=== PATIENT | male | born 1940 | race Caucasian/White ===

== ENCOUNTER 2025-01-02 12:22 | Emergency (ER) | payer MEDICARE, SELFPAY ==
[2025-01-02] VITALS (7 sets, daily range): BP systolic 124–153; BP diastolic 67–87; PULSE 63–82; RESP 16–20; TEMP 36.6; O2SAT 95–100
--- NOTE | ~2025-01-02 | CT_ITS ---
EXAMINATION: CT brain wo con DATE: 01/02/2025 13:48 INDICATION: Altered mental status TECHNIQUE: Computed tomography (CT) of the head was performed without intravenous contrast. Sagittal and coronal reconstructions were performed. The mA was adjusted according to patient size. Iterative reconstruction technique was employed. The dose-length product was 681.00 mGy-cm. COMPARISON: None FINDINGS: No acute intracranial hemorrhage, acute infarction or abnormal extra axial fluid collection. There is moderate scattered white matter hypoattenuation consistent with chronic small vessel ischemic diseas e. Symmetric prominence of the sulci and ventricles consistent with moderate age-appropriate diffuse cerebral volume loss. No mass/mass effect. Changes of bilateral intraocular lens replacement. The orb its, paranasal sinuses and mastoid air cells are normal. IMPRESSION: 1. No acute intracranial process. 2. Age-related changes including moderate diffuse volume loss and moderate scattered white matter hyp oattenuation consistent with chronic small vessel ischemic disease. Reviewed, dictated and finalized at location B. IMPRESSION: 1. No acute intracranial process. 2. Age-related changes including moderate diffuse volume loss and moderate scat tered white matter hypoattenuation consistent with chronic small vessel ischemi c disease.
--- NOTE | ~2025-01-02 | US_ITS ---
EXAMINATION: US abdomen limited DATE: 01/02/2025 15:38 INDICATION: Examine enteritis TECHNIQUE: Multiple grayscale and Doppler ultrasound images of the abdomen were obtained. COMPARISON: None FINDINGS: Visualized portion of the pancreatic body is normal in appearance. The pancreatic head and tail are obscured. Liver has normal contour, with a smooth surface. There is increased parenchymal echogenicit y and coarsened echotexture consistent with diffuse hepatic steatosis. No liver lesion identified. N o intrahepatic biliary duct dilation suspected. Portal venous flow was seen in the hepatopetal, ely l direction and has normal Doppler waveform. The visualized portion of the gallbladder appears normal with no wall thickening. No evident cholelithiasis however only 2 images of the gallbladder were obt ained at which point the patient terminated the procedure prematurely. IMPRESSION: 1. Limited study, terminated by the patient prior to completion of the study. 2. Diffuse hepatic steatosis. Reviewed, dictated and finalized at location B.
--- NOTE | 2025-01-02 13:09 | ECG_ITS ---
Test Date: 2025-01-02 13:59:48 Measurements Intervals [place] Rate: 61 P: 211 MS: 113 QRS: -26 QRSD: 98 T: 1 QT: 407 QTc: 410 Interpretive Statements SINUS RHYTHM WITH SHORT MS INTERVAL VOLTAGE CRITERIA FOR LVH NONSPECIFIC T-WAVE ABNORMALITY- INFERIOR LEADS BASELINE ARTIFACT- I, III, AVR, AVL, AVF, V1-V6 BORDERLINE ECG No previous ECG available for comparison Electronically Signed On 01-02-2025 14:12:19 CDT by Ronal Tabares D.O.
[2025-01-02 13:32] LABS: Add Urine Microscopic? NO; Appearance Urine Clear (Clear); Bilirubin Urine Negative (Negative); Blood Urine Negative (Negative); Color Urine Yellow (Yellow); Glucose Urine UA Negative (Negative); Ketones Urine Negative (Negative); Leukocyte Esterase Ur Negative LEU/UL (Negative); Nitrate Urine Negative (Negative); Protein Urine Negative (Negative); Specific Grav Ur 1.007 (1.001-1.035); Urobilinogen Urine 0.2 mg/dL (<2.0); pH Urine 7.5 (5.0-9.0)
--- OUTSIDE RECORDS SUMMARY | 2025-01-02 14:04 | XMS_ITS | Clinical Summary ---
Author Organization [facility] at the Medical Office Building Address [address] [place] [address] Care Team Providers Care Orthopedic Radiologic Technologist Name Role Phone Mikel Carvalho MD Primary Care Provider [phone] Allergies No known active allergies Medications ezetimibe (ZETIA) 10 mg tablet Take 1 tablet (10 mg total) by mouth daily Active atorvastatin (LIPITOR) 20 mg tablet Take 1 tablet (20 mg total) by mouth daily Active aspirin 81 mg capsule Take 325 mg by mouth daily Active metoprolol XL (TOPROL-XL) 25 mg 24 hr tablet Take 0.5 tablets (12.5 mg total) by mouth daily 9 Active primidone (MYSOLINE) 50 mg tablet Take 1.5 tablets (75 mg total) by mouth nightly 9 Active memantine (NAMENDA) 10 mg tablet Take 1 tablet (10 mg total) by mouth 2 (two) times a day 3 Active losartan-hydroCHL OROthiazide (HYZAAR) 50-12.5 mg per tablet Take 1 tablet by mouth daily 3 Active furosemide (LASIX) 20 mg tablet Take 1 tablet (20 mg total) by mouth every other day 3 Active ipratropium (ATROVENT) 42 mcg (0.06 %) nasal spray Administer 2 sprays into each nostril as needed 3 Active Osteo Bi-Flex Triple Strength 750 mg-644 mg- 30 mg-1 mg tablet Take 1 tablet by mouth every morning 4 Active methylcellulose, laxative, (CitruceL Sugar Free) powder Active cetirizine (ZyrTEC) 10 mg tablet Take 1 tablet (10 mg total) by mouth daily Active bismuth subsalicylate (PEPTO-BISMOL) 262 mg tablet,chewable 1 tablet (262 mg total) Active nystatin powder Apply topically 4 (four) times a day Active DULoxetine DR (CYMBALTA) 30 mg capsule 5 Active minocycline (MINOCIN,DYNACIN) 100 mg capsule 5 Active Active Problems Problem Noted Date Diagnosed Date Congestive heart failure wit h left ventricular diastolic dysfunction 10/06/2023 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 10/06/2023 Coronary artery disease 10/06/2023 History of recurrent transient ischemic attacks 10/06/2023 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 Assessment & Plan (08/29/2019 3:28 PM DOCTOR OF DENTAL SURGERY): Continue progressive range of motion and strengthening per total knee arthroplasty protocol. Call or return with questions or concerns. Follow-up in 3 months. Assessment & Plan (07/17/2019 7:32 PM DOCTOR OF DENTAL SURGERY): Continue progressive range of motion and strengthening per total knee arthroplasty protocol. Refill meloxicam. Follow up in 6 months. Assessment & Plan (06/19/2019 12:54 PM DOCTOR OF DENTAL SURGERY): Compression stocking given. Continue progressive range of motion and strengthening. Refill meloxicam. Follow up in 6 weeks. Assessment & Plan (05/23/2019 11:28 AM DOCTOR OF DENTAL SURGERY): Continue progressive range of motion and strengthening per total knee arthroplasty protocol. Follow up in 6 weeks. Assessment & Plan (04/22/2019 10:18 AM CDT): Continue progressive range of motion and strengthening per total knee arthroplasty protocol. Call or return with questions or concerns. Follow-up in 1 month for repeat evaluation. Outpatient physical therapy. Refill Tylenol 3. Primary osteoarthritis of left knee 06/03/2016 Assessment & Plan (11/29/2019 11:53 AM CDT): We discussed the risks, benefits and alternatives of treatment options for osteoarthritis of the knee. From least invasive to most invasive: The only thing to slow the progression of osteoarthritis is weight loss. For every pound lost 4 to 6 pounds of stress is relieved from the knee. Formal physical therapy to help with flexion, extension, mobility and strength. Unloading braces to unload the affected side. The possibility of TENs unit to control pain and swelling. Nonsteroidal anti-inflammatories with the potential of cardiac and GI upset. Steroid and Visco supplement injection. And eventual total knee arthroplasty. After going over the risks, benefits and alternatives all questions are answered. Gel 1 is injected today. 22 cc of synovial fluid is aspirated Assessment & Plan (08/29/2019 3:28 PM DOCTOR OF DENTAL SURGERY): We discussed the risks, benefits and alternatives of treatment options for osteoarthritis of the knee. From least invasive to most invasive: The only thing to slow the progression of osteoarthritis is weight loss. For every pound lost 4 to 6 pounds of stress is relieved from the knee. Formal physical therapy to help with flexion, extension, mobility and strength. Unloading braces to unload the affected side. The possibility of TENs unit to control pain and swelling. Nonsteroidal anti-inflammatories with the potential of cardiac and GI upset. Steroid and Visco supplement injection. And eventual total knee arthroplasty. Steroid injected today. Follow-up in 3 months for repeat evaluation. Assessment & Plan (07/17/2019 7:33 PM DOCTOR OF DENTAL SURGERY): We discussed the risks, benefits and alternatives of treatment options for osteoarthritis of the knee. From least invasive to most invasive: The only thing to slow the progression of osteoarthritis is weight loss. For every pound lost 4 to 6 pounds of stress is relieved from the knee. Formal physical therapy to help with flexion, extension, mobility and strength. Unloading braces to unload the affected side. The possibility of TENs unit to control pain and swelling. Nonsteroidal anti-inflammatories with the potential of cardiac and GI upset. Steroid and Visco supplement injection. And eventual total knee arthroplasty. Not bad enough for injection today. Refill meloxicam. Follow up in 6 months Assessment & Plan (05/23/2019 11:28 AM DOCTOR OF DENTAL SURGERY): We discussed the risks, benefits and alternatives of treatment options for osteoarthritis of the knee. From least invasive to most invasive: The only thing to slow the progression of osteoarthritis is weight loss. For every pound lost 4 to 6 pounds of stress is relieved from the knee. Formal physical therapy to help with flexion, extension, mobility and strength. Unloading braces to unload the affected side. The possibility of TENs unit to control pain and swelling. Nonsteroidal anti-inflammatories with the potential of cardiac and GI upset. Steroid and Visco supplement injection. And eventual total knee arthroplasty. Will hold off for now. Assessment & Plan (03/15/2019 4:05 PM CDT): Patient is scheduled for total knee arthroplasty on the right April 06, 2019. Would like to add a steroid injection to the left knee to help with rehab. Just finished joint class and has no further questions. We do not do femoral nerve blocks. Patient did not want 1 anyway. Would like to proceed with a TENS unit. Apparently anesthesia once cardiac clearance. Assessment & Plan (12/27/2018 3:51 PM CDT): We discussed the risks, benefits and alternatives of treatment options for osteoarthritis of the knee. From least invasive to most invasive: The only thing to slow the progression of osteoarthritis is weight loss. For every pound lost 4 to 6 pounds of stress is relieved from the knee. Formal physical therapy to help with flexion, extension, mobility and strength. Unloading braces to unload the affected side. The possibility of TENs unit to control pain and swelling. Nonsteroidal anti-inflammatories with the potential of cardiac and GI upset. Steroid and Visco supplement injection. And eventual total knee arthroplasty. After going over the risks, benefits and alternatives he would like to proceed with a steroid injection today. And potentially schedule total knee arthroplasty in the future. He does realize that this needs to be at least 3 months out since the injection Encounters Date Type Department Care Team Description 11/23/2024 Telephone [facility] [place] [address] [place] [address] Lexx Akhtar RMA 11/04/2024 Telephone [facility] [address] [place] [address] Danilo Morrell, SERVICE DESK ANALYST 10/21/2024 Telephone [facility] [place] [address] 6th [address] [place] [address] Danilo Morrell, SERVICE DESK ANALYST 10/13/2024 3:15 PM CDT Office Visit [place] [id number] [facility] 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, psychotic disturbance, mood disturbance, or anxiety (HCC) (Primary Dx) from Last 3 Months Immunizations Immunization Administration Dates Next Due Influenza, Trivalent, Adjuva nted, Intramuscular 04/09/2018 Influenza, Trivalent, IM (MDV) 07/09/2012 Influenza, Unspecified 04/22/2023(Deferr ed: Patient decision),04/22/2022(Deferred: Patient decision) ZOSTER Recombinant 06/14/2019,01/19/2019 Surgical History Surgery Date Site/Laterality Comments COLON SURGERY repair twisted colon TOTAL KNEE ARTHROPLASTY 04/06/2019 Right US ABDOMEN COMPLETE W LIVER DOPPLER (C) 02/11/2018 Right Medical History Medical History Date Comments Hypertension Hearing loss Back pain Hyperlipidemia GERD (gastroesophageal reflux disease) Essential tremor Osteoarthritis Family History Medical History Relation Name Comments Alzheimer's disease Brother Alzheimer's disease Mother Cancer Other Relation Name Status Comments Brother Mother Other Social History Tobacco Use Types Packs/Day Years Used Date Smoking Tobacco: Never Smokeless Tobacco: Never Tobacco Cessation:Counseling Given: Not Answered Alcohol Use Standard Drinks/Week Comments Yes 0 (1 standard drink = 0.6 oz pur e alcohol) PHQ-2 Answer Date Recorded PHQ-2 Total Score (If total score is 3 or more points, staff should administer the PHQ-9) 0 10/06/2023 Personal Safety Answer Date Recorded Have you ever been in or are you currently in a harmful physical or emotional relationship or is someone making you feel afraid or unsafe? 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 Not on file Not on file Not on file Obstetrics History Last Filed Vital Signs Vital Sign Reading Time Taken Comments Blood Pressure 146/53 10/13/2024 3:10 PM CDT Pulse 66 10/13/2024 3:10 PM CDT Temperature 36.7 C (98.1 F) 10/13/2024 3:10 PM CDT Respiratory Rate 18 08/12/2024 3:16 PM DOCTOR OF DENTAL SURGERY Oxygen Saturation 98% 08/12/2024 3:16 PM DOCTOR OF DENTAL SURGERY Inhaled Oxygen Concentration - - Weight 94.4 kg (208 lb 3.2 oz) 10/13/2024 3:10 P M CDT Height 182.9 cm (6' 0.01) 10/13/2024 3:10 PM CD T Body Mass Index 28.23 10/13/2024 3:10 PM CDT Plan of Treatment Health Maintenance Due Date Last Done Comments Hepatitis B Screening 1958 Well Visit 65+ 2005 Fall Risk Assessment 07/29/2024 07/29/2023 Depression Screening 10/05/2024 10/06/2023, 07/29/2023, 07/29/2023 Influenza Vaccine (Season Ended) 2025 06/25/2023, 04/21/2022, 05/08/2021, Additional history exists DTaP/Tdap/Td Vaccine (2 - Td or Tdap) 06/08/2034 06/08/2024 Zoster Vaccine Completed 06/14/2019, 01/19/2019 Pneumococcal vaccine 65+ Completed 023, 06/16/2016, 05/01/2015 Medical Devices Implanted Type Area Medical Economics Consultant Device Identifier Shelf Expiration Date Model / Serial / Lot Cataract-Tong Implant,Bilatera l Eye Insurance MEDICARE [facility] MEDICARE [employer] [place]IC[place] [employer] [place] Care Teams Orthopedic Radiologic Technologist Relationship Specialty Start Date End Date Mikel Carvalho MD [address] [address] PCP - General Family Medicine 03/24/24
--- OUTSIDE RECORDS SUMMARY | 2025-01-02 14:04 | XMS_ITS | Referral Summary ---
Author Organization [facility] at the Medical Office Building Address [facility] [place] [address] Care Team Providers Care Basket Grader Name Role Phone Mikel Carvalho MD Primary Care Provider [phone] Encounters Date Type Department Care Team Description 11/23/[address] [facility] [place] [id number] [facility] First Floor [address] [place] [address] Lexx Akhtar RMA 11/04/2024 Telephone [facility] [place] [address] [facility] First Floor [address] [place] [address] Danilo Morrell, [facility] 10/21/2024 Telephone [facility] [place] [address] [facility] 6th Floor [address] [place] [address] Danilo Morrell, RELIEF CHARGE NURSE 10/13/2024 3:15 PM CDT Office Visit [facility] [address] Floor [address] [place] [address] Luzma Kyle PA 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 Assessment & Plan (08/29/2019 3:28 PM OXIDIZED FINISH PLATER): Continue progressive range of motion and strengthening per total knee arthroplasty protocol. Call or return with questions or concerns. Follow-up in 3 months. Assessment & Plan (07/17/2019 7:32 PM OXIDIZED FINISH PLATER): Continue progressive range of motion and strengthening per total knee arthroplasty protocol. Refill meloxicam. Follow up in 6 months. Assessment & Plan (06/19/2019 12:54 PM OXIDIZED FINISH PLATER): Compression stocking given. Continue progressive range of motion and strengthening. Refill meloxicam. Follow up in 6 weeks. Assessment & Plan (05/23/2019 11:28 AM OXIDIZED FINISH PLATER): Continue progressive range of motion and strengthening [...] aspirated Assessment & Plan (08/29/2019 3:28 PM OXIDIZED FINISH PLATER): We discussed the risks, benefits and alternatives [...] evaluation. Assessment & Plan (07/17/2019 7:33 PM OXIDIZED FINISH PLATER): We discussed the risks, benefits and alternatives [...] months Assessment & Plan (05/23/2019 11:28 AM OXIDIZED FINISH PLATER): We discussed the risks, benefits and alternatives [...] least 3 months out since the injection Immunizations Immunization Administration Dates Next Due Influenza, Trivalent, Adjuva nted, Intramuscular 04/09/2018 Influenza, Trivalent, IM (MDV) 07/09/2012 Influenza, Unspecified 04/22/2023(Deferr ed: Patient decision),04/22/2022(Deferred: Patient decision) ZOSTER Recombinant 06/14/2019,01/19/2019 Social History Tobacco Use Types Packs/Day Years [...] on file Legal Sex Male 8:29 PM OXIDIZED FINISH PLATER Gender Identity Not on file Sexual Orientation Not on file Occupation Industry 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 End Date 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 Not on file Not on file 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 Not on file Not on file Not on file Last Filed Vital Signs Vital Sign Reading Time Taken Comments Blood Pressure 146/53 10/13/2024 3:10 PM CDT Pulse 66 10/13/2024 3:10 PM CDT Temperature 36.7 C (98.1 F) 10/13/2024 3:10 PM CDT Respiratory Rate 18 08/12/2024 3:16 PM OXIDIZED FINISH PLATER Oxygen Saturation 98% 08/12/2024 3:16 PM OXIDIZED FINISH PLATER Inhaled Oxygen Concentration - - Weight 94.4 kg (208 lb 3.2 oz) 10/13/2024 3:10 P M CDT Height 182.9 cm (6' 0.01) 10/13/2024 3:10 PM CD T Body Mass Index 28.23 10/13/2024 3:10 PM CDT Plan of Treatment Not on file Medical Devices Implanted Type Area Automatic Casting Machine Operator Device Identifier Shelf Expiration Date Model / Serial / Lot Cataract-Tong Implant,Bilatera l Eye Insurance MEDICARE [facility] MEDICARE [facility] MEDICARE [facility] Care Teams Basket Grader Relationship Specialty Start Date End Date Mikel Carvalho MD [address] [address] PCP - General Family Medicine 03/24/24
--- OUTSIDE RECORDS SUMMARY | 2025-01-02 14:04 | XMS_ITS | Encounter Summary ---
Author Organization [facility] Health Address [address] [place] [address] Care Team Providers Care Mail Handlers Supervisor Name Role Phone Raymond Coronado MD Unavailable [phone] Encounter Details Date Type Department Care Team (Late st Contact Info) Description 04/11/2022 Lab Requisition [facility] Care DermPath Lab [address] [facility] [place] [id number] Atilio Lopez MD [address] [place], [place] [id number] Social History Tobacco Use Types Packs/Day Years Used Date Smoking Tobacco: Never Smokeless Tobacco: Never Alcohol Use Standard Drinks/Week Comments Yes 0 (1 standard drink = 0.6 oz pur e alcohol) occas Sex and Gender Information Value Date Recorded Sex Assigned at Not on file Legal Sex Male 12:44 PM CDT Gender Identity Not on file Sexual Orientation Not on file documented as of this encounter Functional Status * Is person deaf or have serious hearing difficulty? Answer Date of Assessment Author Yes 04/30/2020 12:25 PM Hilary Mahan RN * Is person blind or have serious difficulty seeing? Answer Date of Assessment Author No 04/30/2020 12:25 PM JULIETT Hilary Bryan RN * Does person have serious difficulty walking/climbing stairs? Answer Date of Assessment Author No 04/30/2020 12:25 PM Hilary Mahan RN * Does person have difficulty dressing/bathing? Answer Date of Assessment Author No 04/30/2020 12:25 PM Hilary Mahan RN * Does person have difficulty doing errands alone? Answer Date of Assessment Author Yes 04/30/2020 12:25 PM CDT Hilary Bryan RN documented as of this encounter Mental Status * Does person have difficulty concentrating/remembering/making decisions? Answer Entry Date Author No 04/30/2020 12:25 PM CDT Hilary Bryan RN documented in this encounter Plan of Treatment Not on file documented as of this encounter Procedures Procedure Name Priority Date/Time Associated Diagnosis Comments DERMATOPATHOLOGY Routine 04/10/2022 12:0 0 AM CDT documented in this encounter Results * DERMATOPATHOLOGY (04/10/2022 12:00 AM CDT) Case Report Dermatopathology Report Case: [id number] Authorizing Provider: Atilio Lopez MD Collected: 04/10/2022 12:00 AM Ordering Location: [facility] DermPath Lab Received: 04/11/2022 04:57 PM Pathologist: Elaine Billingsley MD Specimen: Skin, right rastafari 2 2:59 PM CDT DERMATOPATHOLOGY LABORATORY Final Diagnosis Specimen A. SKIN, right rastafari: BASAL CELL CARCINOMA, SUPERFICIAL MULTIFOCAL (C44.319) 2 2:59 PM CDT DERMATOPATHOLOGY LABORATORY at 1459 CDT Clinical History AK vs. SCCA vs. BCCA. Path# [id number] 2 2:59 PM CDT DERMATOPATHOLOGY LABORATORY Gross Description Specimen A: Received is one formalin filled container labeled with the patient's name and designated right rastafari. The specimen consists of a shave biopsy measuring [id number]. Jar 0. 2 2:59 PM CDT DERMATOPATHOLOGY LABORATORY Microscopic Description Specimen A. SKIN, right rastafari: Attached to the undersurface of the epidermis, there are small aggregates of basaloid cells with a high nuclear to cytoplasmic ratio and peripheral palisading. 2 2:59 PM CDT DERMATOPATHOLOGY LABORATORY Disclaimer An external and internal positive and negative controls are appropriate for the histochemical, immunohistochemical and immunofluorescence stain(s) in this case (if any), except where stated explicitly. The performance characteristics of the stain(s) cited in this report were developed and its performance characteristic determined by the Dermatopathology Laboratory at [facility], directed by Dr. León Billingsley. These tests need not be, and therefore are not, approved by the [place] Food and Drug Administration. The tests are used for clinical purposes. Billing Codes Specimen Charges Stain Charges 01419 1 2 2:59 PM CDT DERMATOPATHOLOGY LABORATORY Embedded Images 2 2:59 PM CDT DERMATOPATHOLOGY LABORATORY Pathology/Cytolog y TISSUE SPECIMEN FROM SKIN / Unknown 04/10/2022 04/11/2022 4:57 PM CDT us Atilio Lopez MD LAB - PATHOLOGY/CYTOLOGY ORDER TIGRE Final Result DERMATOPATHOLOGY LABORATORY [facility] - Department of Dermatology [facility] Medicine [address] [place] [address], [address] [phone] documented in this encounter Visit Diagnoses Not on filedocumented in this encounter Care Teams Mail Handlers Supervisor Relationship Specialty [place] [address] [place] [id number] Orthopedic Surgery 02/24/20 documented as of this encounter
--- OUTSIDE RECORDS SUMMARY | 2025-01-02 14:04 | XMS_ITS | Encounter Summary ---
Author Organization [facility] Address [address] [place] [address] Care Team Providers Care Banking Services Officer Name Role Phone Raymond Coronado MD Unavailable Reed Ross MD Unavailable Encounter Details Date Type Department Care Team (Late st Contact Info) Description 07/23/2020 Lab Requisition [facility] Care DermPath Lab [address] [place] [id number] Atilio Lopez MD [address] [place] [address] Social History Tobacco Use Types Packs/Day Years [...] 04/30/2020 12:25 PM CDT Hilary Bryan RN * Is person blind or have serious difficulty seeing? Answer Date of Assessment Author No 04/30/2020 12:25 PM CDT Hilary Bryan RN * Does person have serious difficulty walking/climbing stairs? Answer Date of Assessment Author No 04/30/2020 12:25 PM Hilary Mahan RN * Does person have difficulty dressing/bathing? Answer Date of Assessment Author No 04/30/2020 12:25 PM Hilary Mahan RN * Does person have difficulty doing errands alone? Answer Date of Assessment Author Yes 04/30/2020 12:25 PM Hilary Mahan RN documented as of this encounter Mental Status * Does person have difficulty concentrating/remembering/making decisions? Answer Entry Date Author No 04/30/2020 12:25 PM Hilary Mahan RN documented in this encounter Plan of Treatment Not on file documented as of this encounter Procedures Procedure Name Priority Date/Time Associated Diagnosis Comments DERMATOPATHOLOGY Routine 07/20/2020 3:27 AM GLASSWARE MAKER documented in this encounter Results * DERMATOPATHOLOGY (07/20/2020 3:27 AM GLASSWARE MAKER) Case Report Dermatopathology Report Case: [id number] Authorizing Provider: Atilio Lopez MD Collected: 07/20/2020 03:27 AM Ordering Location: [facility] DermPath Lab Received: 07/23/2020 05:24 AM Pathologist: Elaine Billingsley MD Specimens: A) - Skin, right upper forehead B) - Skin, left bahai 1 3:15 PM [facility] DERMATOPATHOLOGY LABORATORY Final Diagnosis Specimen A. 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 Path # [id number]. B: AK vs BCC vs SCC. Path # [id number]. 1 3:15 PM [facility] DERMATOPATHOLOGY LABORAT[facility] Gross Description Specimen A: Received is one formalin filled container labeled with the patient's name and designated right upper forehead. The specimen consists of a shave biopsy measuring [id number]. Jar 0. Specimen B: Received is one formalin filled container labeled with the patient's name and designated left bahai. The specimen consists of a shave biopsy measuring [id number]. Jar 0. 1 3:15 PM [facility] DERMATOPATHOLOGY LABORATORY Microscopic Description Specimen A. SKIN, right upper forehead: The epidermis shows parakeratosis, full thickness disorderly maturation of keratinocytes, mitoses at different levels, and dyskeratotic cells. Specimen B. SKIN, left bahai: The epidermis shows parakeratosis, full thickness disorderly maturation of keratinocytes, mitoses at different levels, and dyskeratotic cells. The lesion extends to the base of the biopsy. COMMENT: An invasive squamous cell carcinoma cannot be ruled out. 1 3:15 PM [facility] DERMATOPATHOLOGY LABORATORY Disclaimer An external and internal positive and negative controls are appropriate for the histochemical, immunohistochemical and immunofluorescence stain(s) in this case (if any), except where stated explicitly. The performance characteristics of the stain(s) cited in this report were developed and its performance characteristic determined by the Dermatopathology Laboratory at [facility], directed by Dr. León Billingsley. These tests need not be, and therefore are not, approved by the [place] Food and Drug Administration. The tests are used for clinical purposes. Billing Codes Specimen Charges Stain Charges 86836 50248 1 1 1 3:15 PM [facility] DERMATOPATHOLOGY LABORATORY Embedded Images 1 3:15 PM [facility] DERMATOPATHOLOGY LABORATORY Pathology/Cytology TISSUE SPECIMEN FROM SKIN / Unknown 07/20/2020 3:27 AM [facility]ASS[employer]ER 07/23/2020 5:24 AM [facility]ASS[employer]ER Miscellaneous samples (specimen) TISSUE SPECIMEN FROM SKIN / Unknown 07/20/2020 3:27 AM GLASSWARE MAKER 07/23/2020 5:24 AM [employer]ASS[employer]ER us Atilio Lopez MD LAB - PATHOLOGY/CYTOLOGY ORDER TIGRE Final Result DERMATOPATHOLOGY LABORATORY [facility] - Department of Dermatology [facility] Medicine [address] [place] [address], [address] [phone] documented in this encounter Visit Diagnoses Not on filedocumented in this encounter Care Teams Banking Services Officer Relationship Specialty Start Date End Date Reed Ross MD [address] [phone] PCP - Attributed-MSSP 07/06/20 07/25/21 [place] [address] [address] Orthopedic Surgery 02/24/20 documented as of this encounter
--- OUTSIDE RECORDS SUMMARY | 2025-01-02 14:04 | XMS_ITS | Clinical Summary ---
Author Organization [facility] [employer] Address [address] [place] [address] Care Team Providers Care Overedger Name Role Phone Raymond Coronado MD Unavailable [phone] Source Comments [facility],non-owned Affiliates and Associated Physician Practices is amultiple site organization consisting of ambulatory clinics and hospital sitesin [place], [place], [place] and [place]. This disclosure is being madepursuant to the Care Everywhere program and may not contain all information available regarding this patient. Last updated 18.[facility] Allergies No known active allergies Medications * Be aware that medications may not be up to date on this document. Alwaysverify current medications with the patient. atorvastatin (LIPITOR) 20 MG tablet Take 1 (one) tablet by mouth once daily Active ezetimibe (ZETIA) 10 MG tablet Take 1 (one) tablet by mouth once daily Active lisinopril-hyd roCHLOROthiazi de (PRINZIDE; ZESTORETIC) 20-12.5 MG tablet Take 1 (one) tablet by mouth once daily Active metoprolol succinate XL 24hr (TOPROL XL) 25 MG tablet Take 1 (one) tablet by mouth once daily 9 Active Glucosamine-Ch ondroitin (MOVE FREE PO) Take by mouth once daily Active diphenhydramin e-APAP, sleep, (TYLENOL PM ES) 25-500 MG tablet Take 1 (one) tablet by mouth nightly as needed for Insomnia Active Calcium-Phosph orus-Vitamin D (CITRACAL +D3 PO) Take by mouth once daily Active Polyethyl Glycol-Propyl Glycol (SYSTANE OP) by Ophthalmic route 2 times daily Active primidone (MYSOLINE) 50 MG tablet Take 1 tablet by mouth at bedtime 0 Active Additional Information Patient taking differently: 75 mgOral AT BEDTIME, Informant: Spouse, Reported on 12/15/2022 acetaminophen (TYLENOL) 325 MG tablet Take 2 tablets by mouth every 6 hours Maximum allowable Acetaminophen amount = 4 Grams (4000 mg) / 24 hours. 0 Active memantine (NAMENDA) 10 MG tablet 1 Active metroNIDAZOLE (METROGEL) 1 % gel 1 Active traZODone (DESYREL) 50 MG tablet TAKE ONE TO TWO TABLETS BY MOUTH AT BEDTIME NEEDED 1 Active aspirin (Aspirin) 81 MG chew tablet Take 1 (one) tablet by mouth once daily Active urea ([facility]) 20 % Apply to affected area once daily 120 g 5 3 Active Active Problems Problem Noted Date Diagnosed Date Presence of left artificial knee joint 1 Primary osteoarthritis of left knee 02/24/2020 Presence of right artificial knee joint 04/22/20 19 Overview (02/24/2020): April 06, 2019 Last Assessment & Plan: Continue progressive range of motion and strengthening per total knee arthroplasty protocol. Social History Tobacco Use Types Packs/Day Years [...] on file Sexual Orientation Not on file Last Filed Vital Signs Vital Sign Reading Time Taken Comments Blood Pressure 112/68 02/16/2023 1:59 PM CDT Pulse 58 02/16/2023 1:59 PM CDT Temperature 36.8 C (98.3 F) 02/16/2023 1:59 PM CDT Respiratory Rate 14 02/16/2023 1:59 PM CDT Oxygen Saturation 95% 02/16/2023 1:59 PM CDT Inhaled Oxygen Concentration - - Weight 80.7 kg (178 lb) 04/30/2020 5:40 AM CDT Height 180.3 cm (5' 11) 04/30/2020 5:40 AM CDT Body Mass Index 24.83 04/30/2020 5:40 AM CDT Plan of Treatment Health Maintenance Due Date Last Done Comments MEDICARE AWV 12 MONTHS 1940 DTAP/TDAP/TD VACCINES (1 - Tdap) 09/11/1959 PNEUMOCOCCAL VACCINE 50+ (1 of 1 - PCV) 1990 ZOSTER VACCINE (1 of 2) 1990 Respiratory Syncytial Virus (RSV) Vaccine Pt: or over 60 yrs (1 - 1-dose 75+ series) 09/11/2015 COVID-19 VACCINE ( - 2023-2 5 season) 2024 DEPRESSION SCREENING 07/06/2024 INFLUENZA VACCINE (Season Ended) 2025 HEPATITIS B VACCINE Aged Out No longe r eligible based on patient's age to complete this topic HIB VACCINE Aged Out No longer eligi ble based on patient's age to complete this topic HPV VACCINE Aged Out No longer eligi ble based on patient's age to complete this topic MENINGOCOCCAL (Group B) VACC INE SHARED DECISION-MAKING Aged Out No longer eligibl e based on patient's age to complete this topic MENINGOCOCCAL GROUPS A/C/Y/W VACCINE Aged Out No longer eligible b ased on patient's age to complete this topic Medical Devices Implanted Type Area Communication Skills Instructor Device Identifier Shelf Expiration Date Model / Serial / Lot Cmnt Bone Djo Srg Cblt 40gm Hvisc Strl Implanted:Qty: 1 on 04/30/2020 by Raymond Coronado MD at [facility] Left: Knee [employer] 10/19/2020 [id number] / / [id number] Tray Tib 79mm Kn Cocr I Beam Implanted:Qty: 1 on 04/30/2020 by Raymond Coronado MD at [facility] Left: Knee [employer] 02/22/2030 [id number] / / [id number] Cmpnt Fem Kn Lt Cr Cmnt Prm Vngrd Intlk Implanted:Qty: 1 on 04/30/2020 by Raymond Coronado MD at [facility] Left: Knee [employer] 02/05/2030 [id number] / / [id number] Cmpnt Ptlr 31mm 1 Pg Wire Ascnt Arcm Kn Implanted:Qty: 1 on 04/30/2020 by Raymond Coronado MD at [facility] Left: Knee [employer] 11/21/2024 [id number] / / [id number] Brng [id number] Vngrd Arcm Kn Ant Stab Implanted:Qty: 1 on 04/30/2020 by Raymond Coronado MD at [facility] Left: Knee [employer] 12/11/2023 [id number] / / [id number] Insurance MEDICARE [facility] [place] [address] MEDICARE [facility] MEDICARE [facility] Advance Directives Documents on File Type Date Recorded Patient Hand Profiler Expl anation Adv Directive/Living Will/POA 05/04/2020 9:21 PM * Full Code (Latest Code Status on File) Date Activated Date Inactivated Comments 04/30/2020 12:11 PM 05/02/2020 2:40 PM Care Teams Overedger Relationship Specialty [place] [address] [place] [address] Orthopedic Surgery 02/24/20
--- OUTSIDE RECORDS SUMMARY | 2025-01-02 14:04 | XMS_ITS | Clinical Summary ---
Author Organization [facility] Address [address] [place] [address] Care Team Providers Care Cnc Manufacturing Engineer Name Role Phone Fermin Cordoba Primary Care Provider [phone] Allergies No known active allergies Medications aspirin 81 MG chewable tablet Chew 1 tablet (81 mg total) by mouth daily. Active atorvastatin (LIPITOR) 20 MG tablet 1 tablet (20 mg total) daily. Active Calcium-Vitamin D-Vitamin K 500-1000-40 MG-UNT-MCG Chew Tab Active diphenhydrAMINE -APAP (TYLENOL PM) 25-500 MG Tab tablet Take 1 tablet by mouth. Active donepezil (ARICEPT) 10 MG Tab 3 Active ezetimibe (ZETIA) 10 MG tablet 1 tablet (10 mg total) daily. Active furosemide (LASIX) 20 MG tablet 3 Active ipratropium (ATROVENT) 0.06 % nasal spray INHALE 2 SPRAYS IN EACH NOSTRIL 2 TO 3 TIMES PER DAY Active lidocaine 4 % patch Place 1 patch onto the skin daily. 4 Active losartan-hydroC HLOROthiazide (HYZAAR) 50-12.5 MG tablet 4 Active memantine (NAMENDA) 10 MG tablet 4 Active methylcellulose (CITRUCEL) oral powder Active metoprolol succinate ER (TOPROL-XL) 25 MG 24 hr tablet 4 Active minocycline (MINOCIN) 100 MG capsule 4 Active Misc Natural Products (OSTEO BI-FLEX ADV TRIPLE ST) Tab 4 Active primidone (MYSOLINE) 50 MG tablet 4 Active sildenafil (REVATIO) 20 MG tablet 3 Active traZODone (DESYREL) 50 MG tablet 3 Active urea (CARMOL) 20 % cream Apply topically daily. 3 Active albuterol sulfate HFA 108 (90 Base) MCG/ACT inhaler Inhale 2 puffs into the lungs every 6 (six) hours as needed for Wheezing. 18 g 4 Active azithromycin (ZITHROMAX TRI-ALFREDO) 500 mg tablet Take 1 tablet (500 mg total) by mouth daily. 5 tablet 4 Active Family History Medical History Relation Comments No Known Problems Father No Known Problems Mother Relation Status Comments Father Mother Social History Tobacco Use Types Packs/Day Years Used Date Smoking Tobacco: Never Smokeless Tobacco: Former Chew Alcohol Use Standard Drinks/Week Comments Yes 0 (1 standard drink = 0.6 oz pur e alcohol) occasionally Sex and Gender Information Value Date Recorded Sex Assigned at Not on file Legal Sex Male 6:49 PM CDT Gender Identity Not on file Sexual Orientation Not on file Last Filed Vital Signs Vital Sign Reading Time Taken Comments Blood Pressure 100/69 10/02/2023 9:05 PM CDT Pulse 73 10/02/2023 9:05 PM CDT Temperature 38.8 C (101.8 F) 10/02/2023 8:30 PM CDT Respiratory Rate 24 10/02/2023 9:05 PM CDT Oxygen Saturation 94% 10/02/2023 9:05 PM CDT Inhaled Oxygen Concentration - - Weight 90.7 kg (200 lb) 10/02/2023 7:19 PM CDT Height 180.3 cm (5' 11) 10/02/2023 7:19 PM CDT Body Mass Index 27.89 10/02/2023 7:19 PM CDT Plan of Treatment Health Maintenance Due Date Last Done Comments DTaP, Tdap and Td Vaccines ( 1 - Tdap) 09/11/1959 Pneumococcal Vaccine: 50+ Years (1 of 1 - PCV) 1990 Annual Medicare Wellness Visit 2005 RSV Immunization or 60+ Years (1 - 1-dose 75+ series) 09/11/2015 COVID-19 Vaccine (2023-2 5 season) 2024 Zoster Vaccines Completed 06/14/2019, 01/19/2019 Meningococcal B Vaccine Aged Out No l onger eligible based on patient's age to complete this topic Meningococcal Vaccine Aged Out No dian lit eligible based on patient's age to complete this topic RSV Immunizations Under 20 Months Aged Out No longer eligible b ased on patient's age to complete this topic Insurance MEDICARE [facility] [place] [address] [place] [address] MEDICARE [facility] Care Teams Cnc Manufacturing Engineer Relationship Specialty Start Date End Date Fermin Cordoba DO [address] [place] [id number] PCP - General FAMILY PRACTICE 10/02/23
--- NOTE | 2025-01-02 14:19 | ED_ITS ---
HPI - Altered Mental Status General Chief Complaint: Altered Mental Status Stated Complaint: ams Time Seen by Provider: 01/02/25 13:23 History of Present Illness HPI narrative: 84-year-old male with history of advanced Alzheimer's dementia, COPD. Patient presents from his memory care unit at [facility] alongside his and son. Patient has a history of worsening dementia over last 7 years and previously been followed at [facility]. Patient presents today as he has been having violent outbursts and acting more confused than usual and has been going on for last several days. Recently diagnosed with urinary tract infection and on treatment for this. Family members note that he sometimes gets more confused than his baseline and has been yelling obscenities which are unusual for him. Patient is usually alert oriented to his name only and that is currently his baseline mentation. No falls or injury reported. Patient herself is not any acute distress and pleasant and cooperative. Difficult to obtain review of systems as patient is advanced demented. Related Data Allergies Allergy/AdvReac Type Severity Reaction Status Date / Time No Known Allergies Allergy Verified 01/02/25 14:28 Review of Systems 2 Review of Systems: ROS unobtainable: Yes unobtainable due to medical condition Exam 2 Narrative: GENERAL: [Well-appearing, well-nourished, and in no acute distress.] HEAD: [Normocephalic, atraumatic.] EYES: [PERRLA and EOMI.] ENT: Nares clear, no rhinorrhea or epistaxis. Mucous membranes moist. NECK: Supple. CHEST: [Clear to auscultation. No respiratory distress.] HEART: [Regular rate and rhythm]. No murmur heard. [Normal peripheral pulses.] ABDOMEN: [Soft, nondistended], [nontender], [No rigidity or guarding] EXTREMITIES: Normal range of motion. [No edema.] SKIN: Warm, dry, no rash. NEURO: [No focal deficits]. Alert and oriented x1 which is his baseline PSYCH: [Normal mood and affect.] Course Vital Signs Vital signs: Vital Signs Pulse Rate 73 01/02/25 12:23 Respiratory Rate 17 01/02/25 12:23 Blood Pressure 136/87 01/02/25 12:23 Pulse Oximetry 98 01/02/25 12:23 Oxygen Delivery Room Air 01/02/25 12:23 Temperature 36.6 C 01/02/25 15:17 Pulse Rate 82 01/02/25 16:37 Respiratory Rate 16 01/02/25 16:37 Blood Pressure 153/67 H 01/02/25 16:37 Pulse Oximetry 100 01/02/25 16:37 Oxygen Delivery Room Air 01/02/25 13:04 MDM - Altered Mental Status MDM Narrative Medical decision making narrative: 84-year-old male presenting to the emergency department for increased confusion in the setting of potential urinary infection. Patient has advanced dementia and at a memory care unit at [facility]. Patient is accompanied by his family members including son and . Reportedly he has been having more confused outbursts recently over last few days. Patient denies any symptoms and otherwise not any acute distress. He has normal vital signs and unremarkable physical examination. He has as baseline neurological function and mentation. No fever, tachycardia, tachypnea, hypoxia blood pressure concerns. Unclear what treatment regimen he is currently undergoing with urinary infection but his family will trying get me this information while workup is underway. On review of the chart from his care facility he is comfort measures only. Blood work urinalysis and CT of the head and EKG, chest x-ray obtained. Patient provided Toradol for some back pain that he is chronically while workup underway. Workup was reassuring without any leukocytosis or anemia. Normal platelet count. Coagulation panel is normal. Renal function is normal, glucose is normal, electrolytes unremarkable. LFTs are elevated, normal bilirubin. Negative ammonia, normal albumin. Right upper quadrant ultrasound was obtained that shows fatty liver disease and family confirms that he is a lifelong drinker but only drinks once a month now. Which makes sense that his liver is inflamed to that point. Urinalysis unremarkable. Head CT unremarkable for any acute process. EKG without any acute interval anomalies or ST segment concerns. Patient has remained hemodynamically stable, acting appropriately here in the emergency department with normal vital signs. Discussed with family members next steps including follow-up with his primary care provider regarding his liver function and no acute urgent or emergent concerns identified today. Family requested something to help treat his chronic pain at home and will send him home with some pain medications for continued care at his facility. Patient is comfort measures only per his signed wishes and is in no distress, stable for discharge and family will drive him back [facility]. Patient's family was given return precautions and they verbalized understanding prior to safe discharge at this time. Medical Records Attestation: I reviewed the patient's medical records. Lab Data Attestation: I reviewed the patient's lab results. 01/02/25 14:26 01/02/25 14:26 Labs: Lab Results 01/02/25 01/02/25 01/02/25 Range/Units 13:21 14:26 15:24 WBC 8.6 (4.5-10.0) K/mm3 RBC 5.18 (4.6-6.20) M/mm3 Hgb 15.8 (14.0-18.0) g/dL Hct 49.2 (42.0-52.0) % MCV 95.0 (80-100) fl MCH 30.5 (26-34) pg MCHC 32.1 (32-36) g/dl RDW 14.0 (11.5-14.5) % Plt Count 174 (150-375) k/mm3 MPV 9.0 (7.4-10.4) fl Immature Gran % (Auto) 0.2 (0-0.5) % Neut % (Auto) 62.6 (45.5-73.1) % Lymph % (Auto) 20.1 (18.3-44.2) % [place] % (Auto) 9.6 H (2.6-8.5) % Eos % (Auto) 6.7 H (0-4.4) % Baso % (Auto) 0.8 (0.2-1.2) % Lymph # (Auto) 1.72 (0.9-3.2) K/mm3 [place] # (Auto) 0.8 H (0.1-0.6) K/mm3 Eos # (Auto) 0.6 H (0-0.3) K/mm3 Baso # (Auto) 0.1 (0.0-0.1) K/mm3 Abs Immat Gran (auto) 0.02 (0.00-0.031) K/mm3 Absolute Neuts (auto) 5.4 (1.3-6.7) K/mm3 Absolute Nucleated RBC 0.000 (0.0-0.012) K/mm3 Nucleated RBC % 0.0 (0.0-0.2) % PT 14.1 (11.1-14.7) Seconds INR 1.1 APTT 29.3 (22.3-36.8) Seconds Sodium 142 (137-145) mmol/L Potassium 4.5 (3.4-5.0) mmol/L Chloride 100 (98-107) mmol/L Carbon Dioxide 33 H (22-30) mmol/L Anion Gap 9 (4-12) mmol/L BUN 15 (9-20) mg/dL Creatinine 1.17 (0.7-1.3) mg/dL Estim Creat Clear Calc Not Reportable Estimated GFR 59 (59 - ) Glucose 114 H (65-110) mg/dL Calcium 10.1 (8.4-10.2) mg/dL Total Bilirubin 1.0 (0.2-1.3) mg/dL AST 507 H (17-59) U/L ALT 452 H (6-50) U/L Alkaline Phosphatase 183 H (38-126) U/L Ammonia < 9 L (9-30) umol/L Total Protein 7.9 (6.3-8.2) g/dL Albumin 4.3 (3.5-5.1) g/dL Urine Color Yellow (Yellow) Urine Appearance Clear (Clear) Urine pH 7.5 (5.0-9.0) Ur Specific [place] 1.007 (1.001-1.035) Urine Protein Negative (Negative) mg/dL Urine Glucose (UA) Negative (Negative) mg/dL Urine Ketones Negative (Negative) mg/dL Ur Blood (Man) Negative (Negative) Urine Nitrate Negative (Negative) Urine Bilirubin Negative (Negative) Urine Urobilinogen 0.2 (<2.0) mg/dL Leukocyte Esterase Rfl Negative (Negative) KJ/UL Imaging Data Attestation: I personally reviewed and interpreted this imaging study as follows: My impression: Impressions Head CT 01/02/25 13:56 IMPRESSION: 1. No acute intracranial process. 2. Age-related changes including moderate diffuse volume loss and moderate scattered white matter hypoattenuation consistent with chronic small vessel ischemic disease. Abdomen Ultrasound 01/02/25 15:57 IMPRESSION: 1. Limited study, terminated by the patient prior to completion of the study. 2. Diffuse hepatic steatosis. Discharge Plan Discharge Clinical Impression: Delirium due to general medical condition, Dementia, Abnormal LFTs (liver function tests) Patient Disposition: NH Long Term/Asst Living Condition: Stable Instructions: Antibiotic Form Additional Instructions: Your liver function panel was slightly abnormal likely secondary to your alcoholic liver disease which were identified on ultrasound. No other acute urgent or emergent concerns are identified in your labs look great otherwise. No signs of infection. We will send you home with some pain medications which can help treat your back pain that is chronic. Return with any issues with please follow-up with your regular doctors. Patient Language: Malagasy Prescriptions: New tramadol 50 mg tablet 50 mg PO HS Qty: 30 0RF Follow-up/Referrals: UNKNOWN,DOCTOR [Primary Care Provider] - Time of Disposition: 16:30
[2025-01-02 14:31] LABS: Basophils Absolute Auto 0.1 K/mm3 (0.0-0.1); Basophils Percent Auto 0.8 % (0.2-1.2); Eosinophils Absolute Auto 0.6 K/mm3 (0-0.3); Eosinophils Percent Auto 6.7 % (0-4.4); Hematocrit 49.2 % (42.0-52.0); Hemoglobin 15.8 g/dL (14.0-18.0); Immature Granulocyte Absolute 0.02 K/mm3 (0.00-0.031); Immature Granulocyte Percent A 0.2 % (0-0.5); Lymphocytes Absolute Auto 1.72 K/mm3 (0.9-3.2); Lymphocytes Percent Auto 20.1 % (18.3-44.2); Mean Corpuscular HGB Conc 32.1 g/dl (32-36); Mean Corpuscular Hemoglobin 30.5 pg (26-34); Monocytes Absolute Auto 0.8 K/mm3 (0.1-0.6); Monocytes Percent Auto 9.6 % (2.6-8.5); Neutrophils Absolute Auto 5.4 K/mm3 (1.3-6.7); Neutrophils Percent Auto 62.6 % (45.5-73.1); Platelet Count Result 174 k/mm3 (150-375); Red Blood Count 5.18 M/mm3 (4.6-6.20); White Blood Count 8.6 K/mm3 (4.5-10.0)
[2025-01-02 14:42] LABS: Alanine Aminotransferase 452 U/L (6-50); Albumin Level 4.3 g/dL (3.5-5.1); Alkaline Phosphatase 183 U/L (38-126); Anion Gap 9 mmol/L (4-12); Aspartate Amino Transferase 507 U/L (17-59); Blood Urea Nitrogen 15 mg/dL (9-20); Calcium 10.1 mg/dL (8.4-10.2); Carbon Dioxide 33 mmol/L (22-30); Chloride 100 mmol/L (98-107); Estimated Glomerular Filt Rate 59; Glucose 114 mg/dL (65-110); INR 1.1; Potassium 4.5 mmol/L (3.4-5.0); Prothrombin Time 14.1 Seconds (11.1-14.7); Sodium 142 mmol/L (137-145); Total Protein 7.9 g/dL (6.3-8.2)
[2025-01-02 14:43] LABS: Partial Thromboplastin Time 29.3 Seconds (22.3-36.8)
[2025-01-02] MEDS: KETOROLAC 30 MG/ML VIAL (*BKC) IV PUSH (14:45)
[2025-01-02 15:38] LABS: Ammonia < 9 umol/L (9-30)
--- NOTE | 2025-01-02 16:45 | PC.NURSE ---
Report called to nurse Shagufta at [facility]. All questions answered at this time.
== END 2025-01-02 17:05 ==
PROVIDERS: Emergency Provider Student in an Organized Health Care Education/Training Program
DX: G30.9 Alzheimer's disease, unspecified (principal); F02.80 Dementia in other diseases classified elsewhere, unspecified severity, without behavioral disturbance, psychotic disturbance, mood disturbance, and anxiety; R79.89 Other specified abnormal findings of blood chemistry; J44.9 Chronic obstructive pulmonary disease, unspecified
CPT/HCPCS: 36415; 70450; 76705; 80053; 81003; 82140; 85025; 85610; 85730; 93005; 96374; 99284; J1885

== ENCOUNTER 2025-01-03 11:04 | Emergency (ER) | payer MEDICARE, SELFPAY ==
[2025-01-03] VITALS (8 sets, daily range): BP systolic 89–150; BP diastolic 64–83; PULSE 59–70; RESP 13–18; TEMP 36.8; O2SAT 94–100
--- NOTE | ~2025-01-03 | CT_ITS ---
CT abdomen pelvis w con Ordering provider: Ricardo Cordoba MD History: 84 years Male with . transaminitis . Comparison: None. Technique: CT abdomen and pelvis with IV and without oral contrast. Automated exposure control and it erative reconstruction technique were employed. The dose-length product was 1106.53 mGy-cm. 100 MLO O mnipaque 350 was given IV. Findings: VISUALIZED LOWER CHEST: Normal. UPPER ABDOMINAL ORGANS: Liver: Fat infiltration. Hypodensity most likely a cyst is seen in the right lobe segment 8 measuring 3.2 cm. Smaller cysts also seen in the segment #6 measuring 1.1 cm. Gallbladder: Normal. Spleen: Normal. Stomach/duodenum: Normal. Pancreas: Normal. Slightly prominent pancreatic duct. Follow-up advised. Adrenals: Right adrenal adenoma is seen measuring 1.6 cm. No follow-up advised unless clinically francisco anted. Kidneys: Cysts seen in the left kidney upper pole measuring 1.4 cm. Tiny cyst in the right kidney midpole. PELVIC ORGANS: The bladder is normal. BOWEL AND MESENTERY: Colon: No evidence of diverticulitis. No evidence of appendicitis. Small Bowel: Normal. No obstruction. Peritoneum/mesentery: No free air or free fluid. No mesenteric lymphadenopathy. RETROPERITONEUM: Mild atheromatous disease of the abdominal aorta. No retroperitoneal lymphadenopat hy. MUSCULOSKELETAL: Superficial soft tissues: The superficial soft tissues are normal. Bones: Age appropriate degenerative changes of the spine. Bilateral hip osteoarthritic changes. Bilat eral sacroiliitis. IMPRESSION: 1. No evidence of appendicitis, diverticulitis or intestinal obstruction. 2. Fat infiltration of the liver. 3. Hypodensities suggestive of Hepatic cysts. Ultrasound confirmation advised. 4. Bilateral renal cysts. 5. Slightly prominent pancreatic duct. Follow-up advised. 6. Right adrenal adenoma. No follow-up advised unless clinically warranted. Reviewed, dictated and finalized at location A.
--- NOTE | ~2025-01-03 | US_ITS ---
EXAMINATION: US venous doppler [facility] DATE: 01/03/2025 11:55 INDICATION: Bilateral lower limb pain and erythema TECHNIQUE: Grayscale ultrasound images without and with compression and Doppler ultrasound images of the bilateral lower extremity veins were obtained. COMPARISON: None. FINDINGS: The visualized portions of right common femoral vein, profunda (deep) femoral vein, femoral vein, pop liteal vein, posterior tibial veins, peroneal veins, gastrocnemius vein and greater saphenous vein ou tflow are patent. The visualized portions of left common femoral vein, profunda femoral vein, femoral vein, popliteal v ein, posterior tibial veins, peroneal veins, gastrocnemius vein and greater saphenous vein outflow ar e patent. IMPRESSION: 1. No deep venous thrombosis in either lower limb. Reviewed, dictated and finalized at location B.
--- NOTE | ~2025-01-03 | US_ITS ---
EXAM: ABDOMEN ULTRASOUND HISTORY: transaminitis COMPARISON: None FINDINGS: LIVER: The liver is increased in echogenicity and borderline in size measuring 19 cm in longitudinal dimension. The portal vein is patent, demonstrating hepatopedal flow. GALLBLADDER: No stones are identified within the gallbladder, which is otherwise unremarkable. No gallbladder wall thickening or pericholecystic fluid. BILE DUCTS: Common bile duct measures 4mm. PANCREAS: Limited evaluation of the pancreas secondary to overlying bowel gas IMPRESSION: Fatty infiltration of a borderline enlarged liver. No stones within the gallbladder. Limited visualization of the pancreas secondary to overlying bowel gas. Reviewed, dictated and finalized at location A.
--- NOTE | ~2025-01-03 | XR_ITS ---
CHEST RADIOGRAPH CLINICAL HISTORY: weakness . COMPARISON: None available TECHNIQUE: Single portable view of the chest. FINDINGS The cardiomediastinal silhouette is unremarkable. The lungs are clear. IMPRESSION: No focal infiltrate or effusion. Reviewed, dictated and finalized at location A.
--- OUTSIDE RECORDS SUMMARY | 2025-01-03 11:26 | XMS_ITS | Clinical Summary ---
Author Organization [facility] Address [address] [place] [address] Care Team Providers Care Bottle Selector Name Role Phone Fermin Cordoba Primary Care Provider [phone] Allergies No known active allergies Medications aspirin [...] age to complete this topic Insurance MEDICARE [facility] [place] [address] [place] [address] MEDICARE [facility] Care Teams Bottle Selector Relationship Specialty Start Date End Date Fermin Cordoba DO [address] [place] [id number] PCP - General FAMILY PRACTICE 10/02/23
--- OUTSIDE RECORDS SUMMARY | 2025-01-03 11:26 | XMS_ITS | Encounter Summary ---
Author Organization [facility] Health Address [address] [place] [address] Care Team Providers Care Horse And Wagon Driver Name Role Phone Raymond Coronado MD Unavailable [phone] Encounter Details Date Type Department Care Team (Late st Contact Info) Description 04/11/2022 Lab Requisition [facility] Care DermPath Lab [address] [facility] [place] [id number] Atilio Lopez MD [address] [place], [place] [id number] Social History Tobacco Use Types Packs/Day Years [...] AM CDT) Case Report Dermatopathology Report Case: [id number] Authorizing Provider: Atilio Lopez MD Collected: 04/10/2022 12:00 AM Ordering Location: [facility] DermPath Lab Received: 04/11/2022 04:57 PM Pathologist: Elaine Billingsley MD Specimen: Skin, right gnosticism 2 2:59 PM CDT DERMATOPATHOLOGY LABORATORY Final Diagnosis Specimen A. 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 SCCA vs. BCCA. Path# [id number] 2 2:59 PM CDT DERMATOPATHOLOGY LABORATORY Gross Description Specimen A: Received is one formalin filled container labeled with the patient's name and designated right gnosticism. The specimen consists of a shave biopsy measuring 8p9x3rh. Jar 0. 2 2:59 PM CDT DERMATOPATHOLOGY LABORATORY Microscopic Description Specimen A. SKIN, right gnosticism: Attached to the undersurface of the epidermis, [...] characteristic determined by the Dermatopathology Laboratory at [facility], directed by Dr. León Billingsley. These tests need not be, and therefore are not, approved by the [place] Food and Drug Administration. The tests are used for clinical purposes. Billing Codes Specimen Charges Stain Charges 22840 1 2 2:59 PM CDT DERMATOPATHOLOGY LABORATORY Embedded Images 2 2:59 PM CDT DERMATOPATHOLOGY LABORATORY Pathology/Cytolog y TISSUE SPECIMEN FROM SKIN / Unknown 04/10/2022 04/11/2022 4:57 PM CDT us Atilio Lopez MD LAB - PATHOLOGY/CYTOLOGY ORDER TIGRE Final Result DERMATOPATHOLOGY LABORATORY [facility] - Department of Dermatology [facility] Medicine [address] [place] [address], [address] [phone] documented in this encounter Visit Diagnoses Not on filedocumented in this encounter Care Teams Horse And Wagon Driver Relationship Specialty [place] [address] [place] [address] Orthopedic Surgery 02/24/20 documented as of this encounter
--- OUTSIDE RECORDS SUMMARY | 2025-01-03 11:26 | XMS_ITS | Encounter Summary ---
Author Organization [facility] Health Address [address] [facility] [place] [address] Care Team Providers Care Lithographic Camera Operator Name Role Phone Raymond Coronado MD Unavailable [phone] Reed Ross MD Unavailable Encounter Details Date Type Department Care Team (Late st Contact Info) Description 07/23/2020 Lab Requisition [facility] Care DermPath Lab [address] [place] [phone] Atilio Lopez MD [address] [place] [address] Social History Tobacco Use Types [...] Diagnosis Comments DERMATOPATHOLOGY Routine 07/20/2020 3:27 AM HAND FLATWORK FINISHER documented in this encounter Results * DERMATOPATHOLOGY (07/20/2020 3:27 AM HAND FLATWORK FINISHER) Case Report Dermatopathology Report Case: [id number] Authorizing Provider: Atilio Lopez MD Collected: 07/20/2020 03:27 AM Ordering Location: [facility] DermPath Lab Received: 07/23/2020 05:24 AM Pathologist: Elaine Billingsley MD Specimens: A) - Skin, right upper forehead B) - Skin, left faith 1 3:15 PM [facility] DERMATOPATHOLOGY LABORATORY Final Diagnosis Specimen A. 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 SKIN, left faith: SQUAMOUS CELL CARCINOMA IN SITU, PRESENT AT THE BASE OF THE SPECIMEN (D04.39) (see microscopic description and comment) 1 3:15 PM [facility] DERMATOPATHOLOGY LABORATORY at 1515 HAND FLATWORK FINISHER Clinical History A: AK vs BCC vs SCC. Path # [id number]. B: AK vs BCC vs SCC. Path # [id number]. 1 3:15 PM [facility] DERMATOPATHOLOGY LABORATORY Gross Description Specimen A: Received is one formalin filled container labeled with the patient's name and designated right upper forehead. The specimen consists of a shave biopsy measuring 8e4x0ec. Jar 0. Specimen B: Received is one formalin filled container labeled with the patient's name and designated left faith. The specimen consists of a shave biopsy measuring 2m9l8yo. Jar 0. 1 3:15 PM [facility] DERMATOPATHOLOGY LABORATORY Microscopic Description Specimen A. SKIN, right upper forehead: The epidermis shows parakeratosis, full thickness disorderly maturation of keratinocytes, mitoses at different levels, and dyskeratotic cells. Specimen B. SKIN, left faith: The epidermis shows parakeratosis, full thickness disorderly maturation of keratinocytes, mitoses at different levels, and dyskeratotic cells. The lesion extends to the base of the biopsy. COMMENT: An invasive squamous cell carcinoma cannot be ruled out. 1 3:15 PM [facility] DERMATOPATHOLOGY LABORATORY Disclaimer An external and internal positive and negative controls are appropriate for the histochemical, immunohistochemical and immunofluorescence stain(s) in this case (if any), except where stated explicitly. The performance characteristics of the stain(s) cited in this report were developed and its performance characteristic determined by the Dermatopathology Laboratory at [facility], directed by Dr. León Billingsley. These tests need not be, and therefore are not, approved by the [place] Food and Drug Administration. The tests are used for clinical purposes. Billing Codes Specimen Charges Stain Charges 26137 59020 1 1 1 3:15 PM HAND FLATWORK FINISHER DERMATOPATHOLOGY LABORATORY Embedded Images 1 3:15 PM HAND FLATWORK FINISHER DERMATOPATHOLOGY LABORATORY Pathology/Cytology TISSUE SPECIMEN FROM SKIN / Unknown 07/20/2020 3:27 AM HAND FLATWORK FINISHER 07/23/2020 5:24 AM HAND FLATWORK FINISHER Miscellaneous samples (specimen) TISSUE SPECIMEN FROM SKIN / Unknown 07/20/2020 3:27 AM HAND FLATWORK FINISHER 07/23/2020 5:24 AM HAND FLATWORK FINISHER us Atilio Lopez MD LAB - PATHOLOGY/CYTOLOGY ORDER TIGRE Final Result DERMATOPATHOLOGY LABORATORY [facility] - Department of Dermatology [facility] Medicine [address] [place] [address], [address] [phone] documented in this encounter Visit Diagnoses Not on filedocumented in this encounter Care Teams Lithographic Camera Operator Relationship Specialty Start Date End Date Reed Ross MD [address] [address] PCP - Attributed-MSSP 07/06/20 07/25/21 [place] [address] [address] Orthopedic Surgery 02/24/20 documented as of this encounter
--- OUTSIDE RECORDS SUMMARY | 2025-01-03 11:26 | XMS_ITS | Referral Summary ---
Author Organization [facility] at the Medical Office Building Address [facility] [place] [address] Care Team Providers Care Weight Loss Consultant Name Role Phone Mikel Carvalho MD Primary Care Provider [phone] Encounters Date Type Department Care Team Description 11/23/2024 Telephone [facility] Memory Diagnostic [place] [address] [facility] [address] Floor [address] [place] [address] Lexx Akhtar RMA 11/04/2024 Telephone [facility] Diagnostic [place] [address] [facility] First Floor [address] [place] [address] Danilo Morrell, [facility] 10/21/2024 Telephone [facility] Diagnostic [place] [address] [facility] 6th Floor [address] [place] [address] Danilo Morrell, AUXILIARY OPERATOR 10/13/2024 3:15 PM CDT Office Visit [facility] Diagnostic [address] Floor [address] [place] [address] Luzma Kyle PA Severe late [...] protocol. Assessment & Plan (08/29/2019 3:28 PM MULTIPLE NEEDLE STITCHER): Continue progressive range of motion and strengthening per total knee arthroplasty protocol. Call or return with questions or concerns. Follow-up in 3 months. Assessment & Plan (07/17/2019 7:32 PM MULTIPLE NEEDLE STITCHER): Continue progressive range of motion and strengthening per total knee arthroplasty protocol. Refill meloxicam. Follow up in 6 months. Assessment & Plan (06/19/2019 12:54 PM MULTIPLE NEEDLE STITCHER): Compression stocking given. Continue progressive range of motion and strengthening. Refill meloxicam. Follow up in 6 weeks. Assessment & Plan (05/23/2019 11:28 AM MULTIPLE NEEDLE STITCHER): Continue progressive range of motion and strengthening [...] aspirated Assessment & Plan (08/29/2019 3:28 PM MULTIPLE NEEDLE STITCHER): We discussed the risks, benefits and alternatives [...] evaluation. 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 Not on file Not on file Not on file Last Filed Vital Signs Vital Sign Reading Time Taken Comments Blood Pressure 146/53 10/13/2024 3:10 PM CDT Pulse 66 10/13/2024 3:10 PM CDT Temperature 36.7 C (98.1 F) 10/13/2024 3:10 PM CDT Respiratory Rate 18 08/12/2024 3:16 PM MULTIPLE NEEDLE STITCHER Oxygen Saturation 98% 08/12/2024 3:16 PM MULTIPLE NEEDLE STITCHER Inhaled Oxygen Concentration - - Weight 94.4 kg (208 lb 3.2 oz) 10/13/2024 3:10 P M CDT Height 182.9 cm (6' 0.01) 10/13/2024 3:10 PM CD T Body Mass Index 28.23 10/13/2024 3:10 PM CDT Plan of Treatment Not on file Medical Devices Implanted Type Area Account Installer Device Identifier Shelf Expiration Date Model / Serial / Lot Cataract-Tong Implant,Bilatera l Eye Insurance MEDICARE [facility]IC[facility]IC[facility] Care Teams Weight Loss Consultant Relationship Specialty Start Date End Date Mikel Carvalho MD [address] [address] PCP - General Family Medicine 03/24/24
--- OUTSIDE RECORDS SUMMARY | 2025-01-03 11:26 | XMS_ITS | Clinical Summary ---
Author Organization [facility] at the Medical Office Building Address [address] [place] [address] Care Team Providers Care Inhalation Therapy Aides Teacher Name Role Phone Mikel Carvalho MD Primary Care Provider [phone] Allergies No known active allergies Medications ezetimibe [...] protocol. Assessment & Plan (08/29/2019 3:28 PM VENETIAN BLIND TAPE CUTTER): Continue progressive range of motion and strengthening per total knee arthroplasty protocol. Call or return with questions or concerns. Follow-up in 3 months. Assessment & Plan (07/17/2019 7:32 PM VENETIAN BLIND TAPE CUTTER): Continue progressive range of motion and strengthening per total knee arthroplasty protocol. Refill meloxicam. Follow up in 6 months. Assessment & Plan (06/19/2019 12:54 PM VENETIAN BLIND TAPE CUTTER): Compression stocking given. Continue progressive range of motion and strengthening. Refill meloxicam. Follow up in 6 weeks. Assessment & Plan (05/23/2019 11:28 AM VENETIAN BLIND TAPE CUTTER): Continue progressive range of motion and strengthening [...] aspirated Assessment & Plan (08/29/2019 3:28 PM VENETIAN BLIND TAPE CUTTER): We discussed the risks, benefits and alternatives [...] evaluation. Assessment & Plan (07/17/2019 7:33 PM VENETIAN BLIND TAPE CUTTER): We discussed the risks, benefits and alternatives [...] months Assessment & Plan (05/23/2019 11:28 AM VENETIAN BLIND TAPE CUTTER): We discussed the risks, benefits and alternatives [...] Type Department Care Team Description 11/23/2024 Telephone [facility] Diagnostic [place] [address] [place] [address] Lexx Akhtar RMA 11/04/2024 Telephone [facility] [address] [place] [address] Danilo Morrell, CRIMINAL RESEARCHER 10/21/2024 Telephone [facility] [place] [address] [facility] 6th [address] [place] [address] Danilo Morrell, CRIMINAL RESEARCHER 10/13/2024 3:15 PM CDT Office Visit [place] [address] [place] [address] Luzma Kyle PA Severe late [...] on file Legal Sex Male 8:29 PM VENETIAN BLIND TAPE CUTTER Gender Identity Not on file Sexual Orientation Not on file 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 Industry 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 End 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 Not 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 Not on file Not on file 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 Not on file Not on file Not on file Obstetrics History Last Filed Vital Signs Vital Sign Reading Time Taken Comments Blood Pressure 146/53 10/13/2024 3:10 PM CDT Pulse 66 10/13/2024 3:10 PM CDT Temperature 36.7 C (98.1 F) 10/13/2024 3:10 PM CDT Respiratory Rate 18 08/12/2024 3:16 PM VENETIAN BLIND TAPE CUTTER Oxygen Saturation 98% 08/12/2024 3:16 PM VENETIAN BLIND TAPE CUTTER Inhaled Oxygen Concentration - - Weight 94.4 [...] 06/16/2016, 05/01/2015 Medical Devices Implanted Type Area Sanding Machine Tender Device Identifier Shelf Expiration Date Model / Serial / Lot Cataract-Tong Implant,Bilatera l Eye Insurance MEDICARE [facility] MEDICARE [employer] [place] MEDICARE [employer] [place] Care Teams Inhalation Therapy Aides Teacher Relationship Specialty Start Date End Date Mikel Carvalho MD [address] [address] PCP - General Family Medicine 03/24/24
--- OUTSIDE RECORDS SUMMARY | 2025-01-03 11:26 | XMS_ITS | Clinical Summary ---
Author Organization [facility] Address [address] [place] [address] Care Team Providers Care Svp Marketing Name Role Phone Raymond Coronado MD Unavailable [phone] Source Comments [facility],non-owned Affiliates and Associated Physician Practices is amultiple site organization consisting of ambulatory clinics and hospital sitesin [place], [place], [place] and [place]. This disclosure is being madepursuant to the Care Everywhere program and may not contain all information available regarding this patient. Last updated 18.[facility] Allergies No known active allergies Medications * [...] this topic Medical Devices Implanted Type Area Licensed Loan Officer Assistant Device Identifier Shelf Expiration Date Model / Serial / Lot Cmnt Bone Djo Srg Cblt 40gm Hvisc Strl Implanted:Qty: 1 on 04/30/2020 by Raymond Coronado MD at [facility] Left: Knee [employer] 10/19/2020 600-15-000 / / [id number] Tray Tib 79mm Kn Cocr I Beam Implanted:Qty: 1 on 04/30/2020 by Raymond Coronado MD at [facility] Left: Knee [employer] 02/22/2030 [id number] / / [id number] Cmpnt Fem Kn Lt Cr Cmnt Prm Vngrd Intlk Implanted:Qty: 1 on 04/30/2020 by Raymond Coronado MD at [facility] Left: Knee [employer] 02/05/2030 [id number] / / [id number] Cmpnt Ptlr 31mm 1 Pg Wire Ascnt Arcm Kn Implanted:Qty: 1 on 04/30/2020 by Raymond Coronado MD at [facility] Left: Knee [employer] 11/21/2024 [id number] / / [id number] Brng 71nvg88cm Vngrd Arcm Kn Ant Stab Implanted:Qty: 1 on 04/30/2020 by Raymond Coronado MD at [facility] Left: Knee [employer] 12/11/2023 [id number] / / [id number] Insurance [place] [phone] MEDICARE [facility] MEDICARE [facility] Advance Directives Documents on File Type Date Recorded Patient Body Mechanic Apprentice Expl anation Adv Directive/Living Will/POA 05/04/2020 9:21 PM * Full Code (Latest Code Status on File) Date Activated Date Inactivated Comments 04/30/2020 12:11 PM 05/02/2020 2:40 PM Care Teams Svp Marketing Relationship Specialty [place] [address] [place] [address] Orthopedic Surgery 02/24/20
[2025-01-03 11:30] LABS: Hematocrit 48.4 % (42.0-52.0); Hemoglobin 15.9 g/dL (14.0-18.0); Immature Granulocyte Percent A 0.2 % (0-0.5); Lymphocytes Absolute Auto 1.46 K/mm3 (0.9-3.2); Mean Corpuscular HGB Conc 32.9 g/dl (32-36); Mean Corpuscular Hemoglobin 31.1 pg (26-34); Mean Corpuscular Volume 94.5 fl (80-100); Nucleated Red Blood Cells Absolute Auto 0.000 K/mm3 (0.0-0.012); Nucleated Red Blood Cells Perc 0.0 % (0.0-0.2); Platelet Count Result 195 k/mm3 (150-375); Red Blood Count 5.12 M/mm3 (4.6-6.20); White Blood Count 8.2 K/mm3 (4.5-10.0)
[2025-01-03 11:52] LABS: Albumin Level 4.3 g/dL (3.5-5.1); Alkaline Phosphatase 167 U/L (38-126); Anion Gap 8 mmol/L (4-12); Bilirubin,Total 1.4 mg/dL (0.2-1.3); Blood Urea Nitrogen 22 mg/dL (9-20); Calcium 9.7 mg/dL (8.4-10.2); Carbon Dioxide 31 mmol/L (22-30); Chloride 98 mmol/L (98-107); Estimated CRCL calculation 47 ml/min; Estimated Glomerular Filt Rate > 60; Glucose 107 mg/dL (65-110); Potassium 4.7 mmol/L (3.4-5.0); Sodium 137 mmol/L (137-145); Total Protein 7.4 g/dL (6.3-8.2)
[2025-01-03 11:54] LABS: INR 1.1; Prothrombin Time 14.2 Seconds (11.1-14.7)
[2025-01-03 11:55] LABS: Partial Thromboplastin Time 20.7 Seconds (22.3-36.8)
[2025-01-03 12:38] LABS: Alanine Aminotransferase 798 U/L (6-50); Aspartate Amino Transferase 992 U/L (17-59)
[2025-01-03 13:39] LABS: NT Pro B Type Natriuretic Pept 285 pg/mL (19.9-100)
--- NOTE | 2025-01-03 15:02 | ED_ITS ---
HPI - General Adult General Chief complaint: Extremity Injury, Lower Stated complaint: leg pain Time Seen by Provider: 01/03/25 11:17 History of Present Illness HPI narrative: Patient is an 84-year-old male with profound dementia who presents ER with redness to his legs. The alf family are concerned he has blood clots. Patient provide absolutely no history. Patient is not on blood thinners. Related Data Allergies Allergy/AdvReac Type Severity Reaction Status Date / Time No Known Allergies Allergy Verified 01/02/25 14:28 Review of Systems 2 Review of Systems: ROS unobtainable: Yes unobtainable due to mental status PMFSH Past Medical History Medical History (Updated 01/03/25 @ 18:52 by Ricardo Cordoba MD) GERD (gastroesophageal reflux disease) Hyperlipidemia Exam 2 Narrative: GENERAL: Well-appearing, well-nourished, and in no acute distress. HEAD: Normocephalic, atraumatic. EYES: PERRL and EOMI. ENT: Mucous membranes moist. NECK: Supple. CHEST: Clear to auscultation. No respiratory distress. HEART: Regular rate and rhythm. Normal peripheral pulses. ABDOMEN: Soft, nontender, nondistended. EXTREMITIES: Normal range of motion. No edema. SKIN: Warm, dry, no rash. NEURO: Awake alert, oriented to self. Moves all extremities without issue. Course Course Emergency Course: initially present and requested hospice consultation. She then got her children involved in the decision was made to workup the patient's abnormal liver enzymes more before they make any sort of decision. No obvious causative transaminitis. Patient is nontender on abdomen evaluation. No evidence of heart failure with had a congestion. He does have a fatty liver. 1849: Patient able to get up and ambulate. It takes a lot of encouragement because he is so confused but he is able to get up on his own without any assistance other than just holding his walker. He is able go back to his memory care since he can do this. Family would still like information on hospice but will not go further with workup of his transaminitis. Vital Signs Vital signs: Vital Signs Temperature 98.2 F 01/03/25 11:02 Pulse Rate 70 01/03/25 11:02 Respiratory Rate 13 01/03/25 11:02 Blood Pressure 89/64 L 01/03/25 11:02 Pulse Oximetry 96 01/03/25 11:02 Oxygen Delivery Room Air 01/03/25 11:02 Temperature 98.2 F 01/03/25 11:02 Pulse Rate 59 L 01/03/25 16:01 Respiratory Rate 15 01/03/25 16:01 Blood Pressure 112/72 01/03/25 16:01 Pulse Oximetry 94 01/03/25 11:48 Oxygen Delivery Room Air 01/03/25 11:02 Medical Decision Making Vital Signs Vital Signs: Vital Signs Temperature 98.2 F 01/03/25 11:02 Pulse Rate 70 01/03/25 11:02 Respiratory Rate 13 01/03/25 11:02 Blood Pressure 89/64 L 01/03/25 11:02 Pulse Oximetry 96 01/03/25 11:02 Oxygen Delivery Room Air 01/03/25 11:02 Temperature 98.2 F 01/03/25 11:02 Pulse Rate 59 L 01/03/25 16:01 Respiratory Rate 15 01/03/25 16:01 Blood Pressure 112/72 01/03/25 16:01 Pulse Oximetry 94 01/03/25 11:48 Oxygen Delivery Room Air 01/03/25 11:02 Lab Data 01/03/25 11:24 01/03/25 11:24 Labs: Lab Results 01/03/25 01/03/25 01/03/25 Range/Units 11:24 17:06 17:07 WBC 8.2 (4.5-10.0) K/mm3 RBC 5.12 (4.6-6.20) M/mm3 Hgb 15.9 (14.0-18.0) g/dL Hct 48.4 (42.0-52.0) % MCV 94.5 (80-100) fl MCH 31.1 (26-34) pg MCHC 32.9 (32-36) g/dl RDW 14.2 (11.5-14.5) % Plt Count 195 (150-375) k/mm3 MPV 9.8 (7.4-10.4) fl Immature Gran % (Auto) 0.2 (0-0.5) % Neut % (Auto) 64.5 (45.5-73.1) % Lymph % (Auto) 17.8 L (18.3-44.2) % [place] % (Auto) 9.0 H (2.6-8.5) % Eos % (Auto) 7.4 H (0-4.4) % Baso % (Auto) 1.1 (0.2-1.2) % Lymph # (Auto) 1.46 (0.9-3.2) K/mm3 [place] # (Auto) 0.7 H (0.1-0.6) K/mm3 Eos # (Auto) 0.6 H (0-0.3) K/mm3 Baso # (Auto) 0.1 (0.0-0.1) K/mm3 Abs Immat Gran (auto) 0.02 (0.00-0.031) K/mm3 Absolute Neuts (auto) 5.3 (1.3-6.7) K/mm3 Absolute Nucleated RBC 0.000 (0.0-0.012) K/mm3 Nucleated RBC % 0.0 (0.0-0.2) % PT 14.2 (11.1-14.7) Seconds INR 1.1 APTT 20.7 L (22.3-36.8) Seconds Sodium 137 (137-145) mmol/L Potassium 4.7 (3.4-5.0) mmol/L Chloride 98 (98-107) mmol/L Carbon Dioxide 31 H (22-30) mmol/L Anion Gap 8 (4-12) mmol/L BUN 22 H (9-20) mg/dL Creatinine 1.15 (0.7-1.3) mg/dL Estim Creat Clear Calc 47 ml/min Estimated GFR > 60 (59 - ) Glucose 107 (65-110) mg/dL Calcium 9.7 (8.4-10.2) mg/dL Total Bilirubin 1.4 H (0.2-1.3) mg/dL AST 992 H (17-59) U/L ALT 798 H (6-50) U/L Alkaline Phosphatase 167 H (38-126) U/L NT-Pro-B Natriuret Pep 285 H (19.9-100) pg/mL Total Protein 7.4 (6.3-8.2) g/dL Albumin 4.3 (3.5-5.1) g/dL Lipase 44 (23-300) U/L Hepatitis A IgM Ab Negative (Negative) Hep Bs Antigen Negative (Negative) Hep B Core IgM Ab Negative (Negative) Hepatitis C Ab Screen Negative (Negative) Monoscreen Negative (Negative) Imaging Data Radiologist's impression: ITS Impressions Venous Doppler Study 01/03/25 12:10 IMPRESSION: 1. No deep venous thrombosis in either lower limb. Chest X-Ray 01/03/25 13:22 IMPRESSION: No focal infiltrate or effusion. Upper Quadrant Ultrasound 01/03/25 14:20 IMPRESSION: Fatty infiltration of a borderline enlarged liver. No stones within the gallbladder. Limited visualization of the pancreas secondary to overlying bowel gas. Abdomen/Pelvis CT 01/03/25 17:02 IMPRESSION: 1. No evidence of appendicitis, diverticulitis or intestinal obstruction. 2. Fat infiltration of the liver. 3. Hypodensities suggestive of Hepatic cysts. Ultrasound confirmation advised. 4. Bilateral renal cysts. 5. Slightly prominent pancreatic duct. Follow-up advised. 6. Right adrenal adenoma. No follow-up advised unless clinically warranted. Discharge Plan Discharge Clinical Impression: Transaminitis, Dementia Patient Disposition: Home Condition: Stable Instructions: Dementia (ED), Transaminitis (ED) Additional Instructions: Return ER if you have a fall and injure yourself, no fever 100.4? F, or you have additional concerns. Patient Language: [place] Prescriptions: No Action tramadol 50 mg tablet 50 mg PO HS Qty: 30 0RF Follow-up/Referrals: UNKNOWN,DOCTOR [Primary Care Provider] - 1 Week
--- NOTE | 2025-01-03 15:19 | PC.NURSE ---
returned call from Shagufta at [facility] at this time to give an update on the pt. Shagufta was busy so this RN spoke to the case aide which she said the pt may need to be transferred to a snf facility due to the pt normally being a 1 assist and is now requiring a 2 assist
[2025-01-03 17:30] LABS: Negative Monotest Control Negative (Negative); Positive Monotest Control Positive (Positive)
[2025-01-03 18:04] LABS: Hepatitis B Surface Antigen Negative (Negative)
[2025-01-03 18:09] LABS: HAV RESULT Negative (Negative); Hepatitis B Core IgM Result Negative (Negative)
[2025-01-03 18:30] LABS: Lipase 44 U/L (23-300)
== END 2025-01-03 20:04 ==
PROVIDERS: Emergency Provider Emergency Medicine
DX: R74.01 Elevation of levels of liver transaminase levels (principal); F03.90 Unspecified dementia, unspecified severity, without behavioral disturbance, psychotic disturbance, mood disturbance, and anxiety; E78.5 Hyperlipidemia, unspecified; K21.9 Gastro-esophageal reflux disease without esophagitis; K76.0 Fatty (change of) liver, not elsewhere classified; N28.1 Cyst of kidney, acquired; D35.01 Benign neoplasm of right adrenal gland; M79.605 Pain in left leg; M79.604 Pain in right leg
CPT/HCPCS: 36415; 71045; 74177; 76705; 80053; 80074; 83690; 83880; 85025; 85610; 85730; 86308; 93970; 99284; Q9967